=== PATIENT | female | born 1970 | race Caucasian/White ===

== ENCOUNTER → 2020-12-27 | Outpatient (CLI) | payer BC, OTHER ==
[~2020-12-27] MED LIST: ACID CONTROLLER20 MG PO; GLUCOPHAGE500 MG PO; METFORMIN HCL500 MG PO; ZOFRAN ODT 4 MG4 MG PO
[2020-12-27 08:50] LABS: BUN/CREATININE RATIO 23 (0-10)
[2020-12-29 04:11] LABS: CREATININE, URINE 50.2 mg/dL (Not Estab.)
[2020-12-29 07:11] LABS: HBSAG SCREEN Negative (Negative); HEP A AB, IGM Negative (Negative); HEP B CORE AB, IGM Negative (Negative); HEP C VIRUS AB >11.0 (0.0-0.9)
[2020-12-29 14:13] LABS: MITOCHONDRIAL (M2) ANTIBODY <20.0 Units (0.0-20.0)
== END ==
LOC: LAB 08:07
PROVIDERS: Family Medicine
DX: E11.9 Type 2 diabetes mellitus without complications (principal); K76.0 Fatty (change of) liver, not elsewhere classified; R79.89 Other specified abnormal findings of blood chemistry; E78.2 Mixed hyperlipidemia
CPT/HCPCS: 80053; 80074; 82043; 82570

== ENCOUNTER → 2021-03-11 | Outpatient (CLI) | payer BC, OTHER ==
[2021-03-11 03:26] LABS: BUN/CREATININE RATIO 21 (0-10)
== END ==
LOC: LAB 02:38
PROVIDERS: Family Medicine
DX: B19.20 Unspecified viral hepatitis C without hepatic coma (principal)
CPT/HCPCS: 80053; 87522

== ENCOUNTER → 2021-04-18 | Outpatient (CLI) | payer BC, OTHER ==
[2021-04-18 10:58] LABS: BUN/CREATININE RATIO 22 (0-10)
== END ==
LOC: LAB 09:50
PROVIDERS: Family Medicine
DX: E11.9 Type 2 diabetes mellitus without complications (principal); B19.20 Unspecified viral hepatitis C without hepatic coma
CPT/HCPCS: 36415; 80053; 87522

== ENCOUNTER → 2022-07-04 | Outpatient (CLI) | payer BC ==
[2022-07-04 07:03] LABS: HEMOGLOBIN 16.1 gm/dl (12.3-15.3); RED BLOOD COUNT 4.84 M/UL (4.00-5.10); WHITE BLOOD COUNT 16.7 K/UL (4.5-11.0)
[2022-07-04 07:25] LABS: BUN/CREATININE RATIO 14 (0-10)
[2022-07-05 11:15] LABS: CREATININE, URINE 149.4 mg/dL (Not Estab.)
== END ==
LOC: LAB 06:31
PROVIDERS: Family Medicine
DX: E78.2 Mixed hyperlipidemia (principal); E11.9 Type 2 diabetes mellitus without complications
CPT/HCPCS: 36415; 80053; 80061; 82043; 82570; 85027

== ENCOUNTER 2022-07-27 22:36 | Emergency (ER) | payer BC ==
[2022-07-27 23:06] LABS: HEMOGLOBIN 15.6 gm/dl (12.3-15.3); RED BLOOD COUNT 4.69 M/UL (4.00-5.10); WHITE BLOOD COUNT 9.9 K/UL (4.5-11.0)
[2022-07-27 23:30] LABS: BUN/CREATININE RATIO 23 (0-10)
[2022-07-28] MEDS ORDERED: PEPCID40 MG PO (01:40)
== END 2022-07-28 02:00 | disposition home or self-care (01) ==
LOC: ER1 22:36
PROVIDERS: Physician Assistant Medical
DX: R10.9 Unspecified abdominal pain (principal); G89.29 Other chronic pain; F17.210 Nicotine dependence, cigarettes, uncomplicated
CPT/HCPCS: 80053; 81001; 83690; 85025; 87086; 99284